=== PATIENT | male | born 1975 | race African-American/Black ===

== ENCOUNTER → 2017-01-12 | Outpatient (CLI) | payer OTHER ==
--- NOTE | ~2017-01-12 | CT2 ---
[facility] A Service of [facility] RADIOLOGY TEXT RESULTS PATIENT: CAESAR HINOJOSA LOCATION: [facility] : 75 UNIT #: [id number] AGE: [address]: Catalino Mills MD SEX: M ORDER DR: [id number] [facility]. [place], [place] [address] [id number] O MR#: [id number] Acc #: [id number] NAME: CAESAR HINOJOSA : 1975 SEX: M STUDY DATE/TIME: 01/12/2017 15:11 UNIT: [facility] ROOM: STUDY DESCRIPTION: CT Abd and Pelv W Cont Attending Physician: Catalino Mills M.D. Referring Physician: Catalino Mills M.D. Ordering Physician: Catalino Mills M.D. Primary Care Physician: Mika Cedeño M.D. MEDICAL IMAGING REPORT This report is preliminary unless electronic signature is present EXAM Abdomen and pelvis CT with contrast. HISTORY Epigastric pain toward the left upper quadrant with nausea, vomiting, and diarrhea over the past month. TECHNIQUE Axial images were obtained with oral and intravenous contrast. 100 mL of Isovue was used. This CT exam was performed with one or more of the following radiation dose reduction techniques: automatic exposure control, adjustment of mA and/or kV according to patient size, and iterative reconstruction. FINDINGS The liver shows diffuse fatty infiltration. No bile duct dilatation is noted. The spleen contains a calcified granuloma. The pancreas, kidneys, and adrenals are unremarkable. There is no evidence of retroperitoneal adenopathy or ascites. A calcified granuloma is also seen in the liver. The aorta is unremarkable. No vascular occlusive disease is seen in the abdomen. There are no distended bowel loops. The appendix is normal. In the pelvis, there is no evidence of adenopathy, mass, or a fluid collection. IMPRESSION Diffuse hepatic steatosis. Evidence of previous granulomatous infection in the liver and spleen. No acute or inflammatory changes are seen in the abdomen or pelvis. Dictated by... [facility] A Service of [facility] RADIOLOGY TEXT RESULTS PATIENT: CAESAR HINOJOSA LOCATION: [facility] : 75 UNIT #: [id number] AGE: [address]: Catalino Mills MD SEX: M ORDER DR: Tres Tejeda M.D. THIS IS AN ELECTRONICALLY VERIFIED REPORT Tres Tejeda M.D. at 01/13/2017 4:08 PM PHYLLIS/desiree TD: 01/13/2017 15:29 JOB #: [id number] MEDICAL IMAGING REPORT Page 1 of 1 COPY
[2017-01-12 13:51] LABS: HEMATOCRIT 41.9 % (38.0-50.0); HEMOGLOBIN 13.8 gm/dL (13.0-16.0); MEAN CELL VOLUME 91.8 FL (83-96); MEAN CORPUSCULAR HEMOGLOBIN 30.2 PG (28-34); MEAN CORPUSCULAR HGB CONC 32.9 g/dL (30-36); MEAN PLATELET VOLUME 9.9 FL (6.5-11.5); RED BLOOD COUNT 4.56 X10e (3.90-5.60); RED CELL DISTRIBUTION WIDTH 12.3 % (11.0-15.5); WHITE BLOOD COUNT 3.3 X10e3 (4.0-10.5)
[2017-01-12 14:12] LABS: ALBUMIN SERUM 4.6 g/dL (3.5-5.0); BILIRUBIN,TOTAL 2.7 mg/dL (0.2-2.0); BUN/CREATININE RATIO 11.11; CALCIUM SERUM 9.3 mg/dL (8.4-10.2); CREATININE SERUM 0.9 mg/dL (0.6-1.4); GLOM FILT RATE Estimated 121.7 mL/min (>60); POTASSIUM 3.5 mmol/L (3.5-5.1); PROTEIN TOTAL SERUM 8.9 g/dL (6.0-8.3)
== END | disposition home or self-care (01) ==
LOC: CLAB 13:06 → CCAT 13:06
PROVIDERS: Internal Medicine
DX: R10.33 Periumbilical pain (principal); K76.0 Fatty (change of) liver, not elsewhere classified
CPT/HCPCS: 36415; 74177; 80053; 82274; 82705; 85027; 87045; 87427; 87493; 87899; Q9967